=== PATIENT | female | born 1985 | race Caucasian/White ===

== ENCOUNTER 2024-02-05 14:55 | Emergency (ER) | payer BC, MEDICAID, SELFPAY ==
[2024-02-05 15:07] VITALS: BP 130/90
[2024-02-05 15:42] LABS: % Basophils 0.3 % (0-2); % Eosinophils 0.5 % (0-6); % Immature Granulocytes 0.9 % (0-0.5); % Lymphocytes 28.1 % (20.5-51.1); % Monocytes 4.4 % (1.7-9.3); % Neutrophils 65.8 % (42.2-75.2); Absolute Eosinophils 0.1 10^3/uL (0-0.7); Absolute Immature Granulocytes 0.1 10^3/uL (0-0.05); Absolute Lymphocytes 3.1 10^3/uL (1.2-3.4); Absolute Monocytes 0.5 10^3/uL (0.1-0.6); Absolute Neutrophils 7.2 10^3/uL (1.4-6.5); Hematocrit 39.5 % (37.0-47.0); Mean Corp Hgb Conc. 35.4 g/dL (33.0-37.0); Mean Corpuscular Hgb 30.1 pg (27.0-31.0); Mean Corpuscular Volume 84.9 fL (81.0-99.0); Mean Platelet Volume 10.1 fL (7.4-10.4); Nucleated Red Blood Cells % 0 %; Platelet Count 293 10^3/uL (130-400); Red Blood Cell Count 4.65 10^6/uL (4.20-5.40); Red Cell Dist. Width 12.8 % (11.5-14.5); White Blood Cell Count 10.9 10^3/uL (4.8-10.8)
[2024-02-05 15:50] LABS: ALT (SGPT) 19 U/L (0-35); AST (SGOT) 22 U/L (14-36); Albumin 4.8 g/dl (3.5-5.0); Alkaline Phosphatase 56 U/L (38-126); Blood Urea Nitrogen 12 mg/dl (7-17); Calcium 9.8 mg/dl (8.4-10.2); Carbon Dioxide 22 mmol/L (22-30); Chloride 106 mmol/L (98-107); Glucose 111 mg/dl (70-99); Sodium 138 mmol/L (135-145); Total Bilirubin 0.5 mg/dl (0.2-1.3); Total Protein 6.9 g/dl (6.3-8.2); eGFR > 60.00
[2024-02-05 16:05] LABS: Beta HCG Quantitative 638.66 mIU/ml
[2024-02-05] MEDS: ATIVAN 0.5 MG PO (16:34)
[2024-02-05 18:33] VITALS: BP 122/74
--- NOTE | 2024-02-05 20:03 | ED.GENMED ---
History of Present Illness
General
Chief Complaint: Problems
Source: patient
Time Seen by Provider: 02/05/24 16:04
History of Present Illness
History of Present Illness:
This is a 39-year-old female who presents with vaginal bleeding. The patient states she tested positive for a few weeks ago. She then became concerned because she was in bleeding and cramping. She has had miscarriages in the past. She
is does state that she had considered for this . This is her 10th . She has 5 live children. Patient also reports feeling anxious.
Past History
Past History
ED Past Medical History: Psychiatric (bipolar, PTSD) and Other (SIBO, gastritis, pancreatitis, colitis)
ED Past Surgical History: Cholecystectomy and Other (Bariatric surgery )
Social History
Tobacco: Non-smoker
Alcohol: None
Drug: None
Phy Exam
Physical Exam
Physical Exam:
CONSTITUTIONAL Patient alert and oriented to person, place and time. Well-appearing. Vital signs reviewed.
HEAD atraumatic, normocephalic.
EYES eyelids normal to inspection, Pupils equally round and reactive to light, Extraocular muscles intact, Conjunctiva normal, Sclera normal.
NECK normal range of motion, Trachea midline, no jugular venous distention.
RESPIRATORY CHEST No respiratory distress noted, Chest expansion equal, Bilateral breath sounds clear.
CARDIOVASCULAR regular rate and rhythm, Heart sounds normal.
ABDOMEN mild suprapubic tenderness, Bowel sounds normal. No distention.
BACK normal inspection, no obvious deformities
UPPER EXTREMITY range of motion normal, Motor strength normal, no cyanosis, no edema.
LOWER EXTREMITY range of motion normal, Motor strength normal, no cyanosis, no edema.
NEURO Speech normal, No focal motor deficits, Emani coma scale 15, Memory normal, Cranial Nerves intact to screening exam.
SKIN skin warm, dry, and normal in color.
PSYCHIATRIC patient oriented to person place and time, Normal affect.
Course
Orders/Labs/Results
Orders:
Orders
02/05/24 15:18
Complete Blood Count/With Diff Urgent
Comprehensive Metabolic Panel Urgent
HCG, Beta Quantitative [Beta HCG Quantitative] Urgent
Is this a screen?: No
02/05/24 16:30
Blood Group&Type Urgent
02/05/24 16:33
Lorazepam [Ativan] 0.5 mg .ROUTE .STK-MED ONE
02/05/24 16:34
Lorazepam [Ativan] 0.5 mg PO NOW STA
02/05/24 17:42
US Transvaginal Only Urgent
Reason For Exam: , bleeding
02/05/24 20:04
Fentanyl, Urine Urgent
Urine Drug Abuse Screen Urgent
Date Specimen was Collected: 02/05/24
Time Specimen was Collected: 20:02
Abnormal Lab Results
02/05/24 02/05/24
15:18 20:04
WBC 10.9 H 10^3/uL
(4.8-10.8)
Abs Immat Gran (auto) 0.1 H 10^3/uL
(0-0.05)
Absolute Neuts (auto) 7.2 H 10^3/uL
(1.4-6.5)
Immature Gran % 0.9 H %
(0-0.5)
Creatinine 0.5 L mg/dL
(0.6-1.0)
Glucose 111 H mg/dl
(70-99)
U Benzodiazepines Scrn Positive H
(Negative)
U Marijuana (THC) Screen Positive H
(Negative)
02/05/24 15:18
02/05/24 15:18
Vital Signs
Initial and Last Documented VS:
Initial Vital Signs
Temp Pulse Resp BP Pulse Ox
99.6 F 86 18 130/90 98
02/05/24 15:07 02/05/24 15:07 02/05/24 15:07 02/05/24 15:07 02/05/24 15:07
Last Documented Vital Signs
Temp Pulse Resp BP Pulse Ox
99.6 F 70 20 126/88 99
02/05/24 15:07 02/05/24 20:58 02/05/24 20:58 02/05/24 20:58 02/05/24 20:58
Information
Weeks gestation: Weeks: (8)
Location: N/A
MDM/Problems Addressed
MDM/Problems Addressed:
vaginal bleeding, threatened miscarriage, missed miscarriage
*Pulse Oximetry
Patient hypoxic: no
*Critical Care Note
Total Time (30-74mins, 75-104mins- exclusive of procedures): Not Applicable
Data Reviewed
Source: patient
Prescriptions/Medications Considered But Not Given:
Consider RhoGAM but blood type is a positive
Patient Management
Escalation/DeEscalation of care consider admission/obs:
Beta is low for how far long she suspect she is. She admits that she passed a large amount of clots into the toilet and possible products of conception while waiting for ultrasound. Ultrasound does not show an IUP. I suspect a missed .
However, she will need repeat beta through ensure levels are declining to 0. stable. no evidence of ruptured ectopic.
ED Attending Note
-
Portions of this chart may have been created with voice recognition software.� Occasional wrong word or��sound alike� substitutions may have occurred due to the inherent limitations of voice recognition software.
Discharge Plan
Departure
Patient Disposition: Home (Routine Discharge)
Date of Disposition: 02/05/24
Time of Disposition: 20:03
Patient with high blood pressure during this ER visit?: No
Discharge Problem:
Threatened miscarriage
Instructions: Threatened Miscarriage (DC)
Prescriptions:
No Action
loperamide [Imodium] 2 mg Capsule
2 mg PO Q4H PRN (Reason: diarrhea)
Theragran Tablet
1 tab PO DAILY
acetaminophen 500 mg Tablet
1,000 mg PO Q6H PRN (Reason: mild pain)
polyethylene glycol 3350 [Gavilax] 17 gram/dose powder
4 g PO DAILY Qty: 119 0RF
Referrals:
NONE,* [Family Provider] -
Stand Alone Forms: Return to Work
Activity Restrictions/Additional Instructions:
Please be sure to have your hCG rechecked in 48 hours. Your Beta HCG today was 638. Return immediately for abdominal pain, vomiting, weakness of any kind or any other concerns.
Interventions
Interventions:
*Risk Screen - Suicide Last Done: 02/05/24 20:58
*General Assessment Last Done: 02/05/24 20:58
*Neglect/Abuse Screening Last Done: 02/05/24 20:58
ED- Fall Risk Assessment Last Done: 02/05/24 15:59
*ED COVID-19 Vaccine History Last Done: 02/05/24 20:58
*Nursing Disposition Last Done: 02/05/24 20:58
ED-Female Genitourinary Assessment Last Done: 02/05/24 15:59
Discharge Date and Time
Discharge Date/Time: 02/05/24 21:03
Print Language: BELIZEAN
[2024-02-05 20:31] LABS: Amphetamines Negative (Negative); Barbiturates Negative (Negative); Benzodiazepines Positive (Negative); Buprenorphine Negative (Negative); Cocaine Negative (Negative); Marijuana Positive (Negative); Methadone Negative (Negative); Methamphetamines Negative (Negative); Opiates Negative (Negative); Phencyclidine Negative (Negative); Tricyclic Antidepressants Negative (Negative)
[2024-02-05 20:46] LABS: Fentanyl, Urine Negative (Negative)
[2024-02-05 20:58] VITALS: BP 126/88
== END 2024-02-05 21:03 | disposition home or self-care (01) ==
LOC: EMR 14:55
PROVIDERS: Emergency Medicine; EMERGENCY PHYSICIAN Emergency Medicine
DX: O20.0 Threatened abortion (principal); Z3A.08 8 weeks gestation of pregnancy
CPT/HCPCS: 99284; 76817; 80053; 80306; 80307; 84702; 85025; 86900; 86901

== ENCOUNTER → 2024-12-16 09:31 | Outpatient (REF) | payer BC, MEDICAID, SELFPAY | LOC: PAVMRI 09:31 | PROVIDERS: ATTENDING PHYSICIAN Physician Assistant Surgical; FAMILY PHYSICIAN Family Medicine | DX: M79.605 Pain in left leg (principal) | CPT/HCPCS: 73721 ==

== ENCOUNTER 2025-01-29 16:31 | Emergency (ER) | payer BC, MEDICAID, SELFPAY ==
[2025-01-29 16:44] VITALS: BP 150/82
--- NOTE | 2025-01-29 17:03 | ED.GENMED ---
History of Present Illness
General
Chief Complaint: Musculo-Skeletal Complaint
Time Seen by Provider: 01/29/25 16:55
History of Present Illness
History of Present Illness:
39-year-old female presenting with right knee pain. Patient states that she injured her left knee, scheduled for meniscus surgery on her left knee in February. Patient states that 2 and half weeks ago her left knee gave out causing her to fall down
1 step landing on her right knee. Patient denies striking her head or loss of consciousness. Patient reports using a compressive dressing on her right knee with some relief, states that she lost the last week and symptoms have been worsening.
Patient denies fever, numbness or weakness or tingling. Patient states that when she fell she also injured her right shoulder but states that has been improving in pain.
Past History
Past History
ED Past Medical History: Psychiatric (bipolar, PTSD) and Other (SIBO, gastritis, pancreatitis, colitis)
ED Past Surgical History: Cholecystectomy and Other (Bariatric surgery )
Social History
Tobacco: Non-smoker
Alcohol: None
Drug: None
Phy Exam
Physical Exam
Physical Exam:
General: Alert, no acute distress
Head: NCAT
Eyes: clear conjunctiva
Neck: supple
Cardiac: regular rate and rhythm, no murmur
Lungs: clear to auscultation bilaterally. No wheezes, rales, or rhonchi. Speaking full unlabored sentences. No respiratory distress.
Abdomen: soft, nondistended nontender. No rebound or guarding.
MSK: no lower extremity edema bilaterally. No deformity. Medial tenderness to right knee. No overlying ecchymosis, erythema, or increased warmth. No effusion. 2+ left DP pulse. No tenderness palpation to right shoulder. Full range of motion
right shoulder. 2+ right radial pulse
Skin: warm, dry
Neuro: Alert and oriented x3. no focal deficits
Course
Orders/Labs/Results
Orders:
Orders
01/29/25 16:49
Knee, Right 4 or More Views [CR Knee- Right 4 Or More View*] Urgent
Comment:
Reason For Exam: pain after fall
Vital Signs
Initial and Last Documented VS:
Initial Vital Signs
Temp Pulse Resp BP Pulse Ox
97.8 F 73 18 150/82 98
01/29/25 16:44 01/29/25 16:44 01/29/25 16:44 01/29/25 16:44 01/29/25 16:44
Last Documented Vital Signs
Temp Pulse Resp BP Pulse Ox
97.8 F 73 18 150/82 98
01/29/25 16:44 01/29/25 16:44 01/29/25 16:44 01/29/25 16:44 01/29/25 17:06
MDM/Problems Addressed
Differential Diagnosis Includes:
Fracture, dislocation, sprain
MDM/Problems Addressed:
39-year-old female presenting with right knee pain. X-ray shows no acute fracture or dislocation. Full range of motion. Advised to use compression dressing. Offered x-ray right shoulder, patient declines. Low suspicion for fracture/dislocation
of right shoulder given no bony tenderness to palpation, full range of motion. Advised follow-up with orthopedic
*Pulse Oximetry
SaO2: 98
Oxygen Mode of Delivery: Room air
Patient hypoxic: no
*Critical Care Note
Total Time (30-74mins, 75-104mins- exclusive of procedures): Not Applicable
ED Attending Note
-
Portions of this chart may have been created with voice recognition software.� Occasional wrong word or��sound alike� substitutions may have occurred due to the inherent limitations of voice recognition software.
Discharge Plan
Departure
Patient Disposition: Home (Routine Discharge)
Date of Disposition: 01/29/25
Time of Disposition: 18:47
Patient with high blood pressure during this ER visit?: Yes
Discharge Problem:
Acute pain of right knee
Instructions: Knee pain - ED discharge instructions
Prescriptions:
No Action
loperamide [Imodium] 2 mg Capsule
2 mg PO Q4H PRN (Reason: diarrhea)
Theragran Tablet
1 tab PO DAILY
acetaminophen 500 mg Tablet
1,000 mg PO Q6H PRN (Reason: mild pain)
polyethylene glycol 3350 [Gavilax] 17 gram/dose powder
4 g PO DAILY Qty: 119 0RF
Referrals:
Hali Agrawal DO [Family Provider, Family Practice]
Activity Restrictions/Additional Instructions:
Take Tylenol 975 mg every 6 hours and/or ibuprofen 800 mg every 8 hours with food as needed for pain
Use Zach wrap for compression dressing
Follow-up with orthopedics
Return to the emergency department for new/worsening symptoms
Interventions
Interventions:
*Risk Screen - Suicide Last Done: 01/29/25 19:08
*General Assessment Last Done: 01/29/25 19:09
*Neglect/Abuse Screening Last Done: 01/29/25 19:08
*ED- Fall Risk Assessment Last Done: 01/29/25 16:44
*ED COVID-19 Vaccine History Last Done: 01/29/25 16:44
*Nursing Disposition Last Done: 01/29/25 19:08
ED-Musculoskeletal Assessment Last Done: 01/29/25 19:07
Discharge Date and Time
Discharge Date/Time: 01/29/25 19:09
Print Language: COLOMBIAN
== END 2025-01-29 19:09 | disposition home or self-care (01) ==
LOC: EMR 16:31
PROVIDERS: EMERGENCY PHYSICIAN Emergency Medicine; FAMILY PHYSICIAN Internal Medicine
DX: M25.561 Pain in right knee (principal); W10.9XXA Fall (on) (from) unspecified stairs and steps, initial encounter; Z98.84 Bariatric surgery status
CPT/HCPCS: 99283; 73564

== ENCOUNTER 2025-03-06 18:19 | Emergency (ER) | payer BC, MEDICAID, SELFPAY ==
[2025-03-06 18:20] VITALS: BP 126/88
[2025-03-06 18:25] LABS: Glucose - Point of Care 112 mg/dl (70-99)
--- NOTE | 2025-03-06 18:43 | EDRN ---
Chuy GUAJARDO in room w/ pt at this time.
--- NOTE | 2025-03-06 19:05 | ED.GENMED ---
History of Present Illness
General
Chief Complaint: Blood Sugar Problem
Source: patient
Exam Limitations: none
Time Seen by Provider: 03/06/25 18:37
History of Present Illness
History of Present Illness:
40 year old female presents with labile blood sugars over the past several days. She does not take any antihyperglycemic medication. 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 She has PCOS. Blood she is due for another menstrual
cycle in 5 days. Over the past 2 days she has been feeling episodes of nausea weakness shakes and cognitive fog and she checks her blood sugar and has been low. Lowest has been today was 45. She has a continuous glucose monitor on her arm that
communicates with her phone. She has noticed since staring collagen supplement, she has had difficulty controlling her glucose. No chest pain or shortness of breath. No other complaints at this time
Past History
Past History
ED Past Medical History: Psychiatric (bipolar, PTSD) and Other (SIBO, gastritis, pancreatitis, colitis)
ED Past Surgical History: Cholecystectomy and Other (Bariatric surgery )
Social History
Tobacco: Non-smoker
Alcohol: None
Drug: None
Phy Exam
Physical Exam
Physical Exam:
General: Well-appearing female no acute respiratory distress HEENT: Normocephalic atraumatic
Heart: Regular rate and rhythm lungs: Clear no wheeze
Neurologic exam: Alert and oriented x 3
Extremities: No cyanosis
Course
Orders/Labs/Results
Orders:
Orders
03/06/25 18:53
0.9% Sodium Chloride 1000 ml [Nss] 1,000 ml IV BOLUS
03/06/25 18:57
Test Result ONCE
03/06/25 19:45
Complete Blood Count/With Diff Urgent
Comprehensive Metabolic Panel Urgent
HCG, Serum Qualitative Screen Urgent
TSH Reflex To Free T4 Urgent
Abnormal Lab Results
03/06/25 03/06/25
18:23 19:45
MCV 77.9 L fL
(81.0-99.0)
MCH 25.5 L pg
(27.0-31.0)
MCHC 32.7 L g/dL
(33.0-37.0)
MPV 11.0 H fL
(7.4-10.4)
BUN 18 H mg/dl
(7-17)
Creatinine 0.5 L mg/dL
(0.6-1.0)
Glucose 113 H mg/dl
(70-99)
POC Glucose 112 H mg/dl
(70-99)
03/06/25 19:45
03/06/25 19:45
Vital Signs
Initial and Last Documented VS:
Initial Vital Signs
Temp Pulse Resp BP Pulse Ox
98.1 F 74 16 126/88 100
03/06/25 18:20 03/06/25 18:20 03/06/25 18:20 03/06/25 18:20 03/06/25 18:20
Last Documented Vital Signs
Temp Pulse Resp BP Pulse Ox
98.6 F 66 19 97/62 99
03/06/25 19:25 03/06/25 21:00 03/06/25 21:00 03/06/25 21:00 03/06/25 21:00
MDM/Problems Addressed
Differential Diagnosis Includes:
Patient has had intermittent episodes of hypoglycemia. Fingerstick at triage was 125 however when I was in the room several minutes after triage her sugar dropped down to 77 per her monitor. Will check labs. Fluids ordered. She is not on any
antihyperglycemic's. No fevers.
*Pulse Oximetry
SaO2: 100
Oxygen Mode of Delivery: Room air
Patient hypoxic: no
*Critical Care Note
Total Time (30-74mins, 75-104mins- exclusive of procedures): Not Applicable
Update Note
Update Note:
Labs reviewed without significant finding. Fingerstick 112. Serum glucose 113. To stabilize. She is feeling better after fluids. Advise follow-up with family doctor
ED Attending Note
-
Portions of this chart may have been created with voice recognition software.� Occasional wrong word or��sound alike� substitutions may have occurred due to the inherent limitations of voice recognition software.
Discharge Plan
Departure
Patient Disposition: Home (Routine Discharge)
Date of Disposition: 03/06/25
Time of Disposition: 23:37
Patient with high blood pressure during this ER visit?: No
Discharge Problem:
Hypoglycemia
Prescriptions:
No Action
loperamide [Imodium] 2 mg Capsule
2 mg PO Q4H PRN (Reason: diarrhea)
Theragran Tablet
1 tab PO DAILY
acetaminophen 500 mg Tablet
1,000 mg PO Q6H PRN (Reason: mild pain)
polyethylene glycol 3350 [Gavilax] 17 gram/dose powder
4 g PO DAILY Qty: 119 0RF
Referrals:
Hali Agrawal DO [Family Provider, Family Practice]
Activity Restrictions/Additional Instructions:
Continue to monitor blood sugar. Return here if needed
Interventions
Interventions:
*Risk Screen - Suicide Last Done: 03/06/25 18:22
*General Assessment Last Done: 03/06/25 19:22
*Neglect/Abuse Screening Last Done: 03/06/25 18:22
*ED- Fall Risk Assessment Last Done: 03/06/25 19:22
*ED COVID-19 Vaccine History Last Done: 03/06/25 19:22
ED- Neurological Assessment Last Done: 03/06/25 19:30
Discharge Date and Time
Print Language: SWEDISH
[2025-03-06 19:24] VITALS: BMI 31.4
[2025-03-06 19:27] VITALS: BP 118/75
[2025-03-06] MEDS: NSS 1000 IV (19:43)
[2025-03-06 20:00] VITALS: BP 106/66
[2025-03-06 20:03] LABS: Hematocrit 38.5 % (37.0-47.0); Hemoglobin 12.6 g/dL (12.0-16.0); Mean Corp Hgb Conc. 32.7 g/dL (33.0-37.0); Mean Corpuscular Volume 77.9 fL (81.0-99.0); Nucleated Red Blood Cells % 0 %; Platelet Count 258 10^3/uL (130-400); Red Cell Dist. Width 12.8 % (11.5-14.5)
[2025-03-06 20:22] LABS: HCG, Serum Qualitative Screen Negative
[2025-03-06 20:25] LABS: ALT (SGPT) 13 U/L (0-35); AST (SGOT) 19 U/L (14-36); Albumin 4.3 g/dl (3.5-5.0); Alkaline Phosphatase 47 U/L (38-126); Blood Urea Nitrogen 18 mg/dl (7-17); Calcium 9.3 mg/dl (8.4-10.2); Carbon Dioxide 23 mmol/L (22-30); Chloride 107 mmol/L (98-107); Estimated Creatinine Clearance 113 ml/min; Glucose 113 mg/dl (70-99); Potassium 4.2 mmol/L (3.5-5.1); Sodium 136 mmol/L (135-145); Total Protein 6.8 g/dl (6.3-8.2); eGFR > 60.00
[2025-03-06 21:00] VITALS: BP 97/62
== END 2025-03-06 23:48 | disposition home or self-care (01) ==
LOC: EMR 18:19
PROVIDERS: Physician Assistant; EMERGENCY PHYSICIAN Student in an Organized Health Care Education/Training Program; FAMILY PHYSICIAN Internal Medicine
DX: E16.2 Hypoglycemia, unspecified (principal); E28.2 Polycystic ovarian syndrome; F31.9 Bipolar disorder, unspecified; Z87.19 Personal history of other diseases of the digestive system; Z90.49 Acquired absence of other specified parts of digestive tract; Z98.84 Bariatric surgery status; F43.10 Post-traumatic stress disorder, unspecified
CPT/HCPCS: 99283; 96360; 80053; 82962; 84443; 84703; 85025

== ENCOUNTER 2025-03-28 10:22 | Outpatient (RCR) | payer BC, MEDICAID, SELFPAY | END 2025-03-28 23:59 | disposition home or self-care (01) | LOC: RPT 10:22 | PROVIDERS: ATTENDING PHYSICIAN Physician Assistant Medical; FAMILY PHYSICIAN Family Medicine | DX: S83.282D Other tear of lateral meniscus, current injury, left knee, subsequent encounter (principal); S83.282A Other tear of lateral meniscus, current injury, left knee, initial encounter (principal); Z73.6 Limitation of activities due to disability; R26.2 Difficulty in walking, not elsewhere classified; M62.81 Muscle weakness (generalized); X58.XXXA Exposure to other specified factors, initial encounter; X58.XXXD Exposure to other specified factors, subsequent encounter | CPT/HCPCS: 97010; 97110; 97140; 97161; 97530 ==

== ENCOUNTER 2025-04-23 11:03 | Outpatient (RCR) | payer BC, MEDICAID, SELFPAY | END 2025-04-23 23:59 | disposition home or self-care (01) | LOC: RPT 11:03 | PROVIDERS: ATTENDING PHYSICIAN Physician Assistant Medical; FAMILY PHYSICIAN Family Medicine | DX: S83.282A Other tear of lateral meniscus, current injury, left knee, initial encounter (principal); Z47.89 Encounter for other orthopedic aftercare (principal); Z73.6 Limitation of activities due to disability; R26.2 Difficulty in walking, not elsewhere classified; M62.81 Muscle weakness (generalized); X58.XXXA Exposure to other specified factors, initial encounter; S83.282D Other tear of lateral meniscus, current injury, left knee, subsequent encounter; X58.XXXD Exposure to other specified factors, subsequent encounter | CPT/HCPCS: 97010; 97110; 97112; 97140; 97530 ==

== ENCOUNTER 2025-05-08 09:30 | Outpatient (RCR) | payer BC, MEDICAID, SELFPAY | END 2025-05-20 11:50 | disposition home or self-care (01) | LOC: RPT 09:30 | PROVIDERS: ATTENDING PHYSICIAN Physician Assistant Medical; FAMILY PHYSICIAN Family Medicine | DX: Z47.89 Encounter for other orthopedic aftercare (principal); S83.282D Other tear of lateral meniscus, current injury, left knee, subsequent encounter; Z73.6 Limitation of activities due to disability; R26.2 Difficulty in walking, not elsewhere classified; M62.81 Muscle weakness (generalized); X58.XXXD Exposure to other specified factors, subsequent encounter; S83.282A Other tear of lateral meniscus, current injury, left knee, initial encounter; X58.XXXA Exposure to other specified factors, initial encounter | CPT/HCPCS: 97110; 97530 ==